=== PATIENT | female | born 1975 | race Two or more races ===

== ENCOUNTER 2023-12-04 19:33 | Emergency (ER) | payer BC, OTHER ==
[~2023-12-04] VITALS: Ht 152.4 cm; Wt 71.0 kg
[2023-12-04 21:20] LABS: Basophils # (auto) 0.2 10 ^3/uL (0-0.2); Basophils % (auto) 2.9 % (0.0-2.0); Eosinophils # (auto) 0.6 10 ^3/uL (0-0.8); Hemoglobin 12.7 g/dL (12.2-16.2); Lymphocytes # (auto) 2.6 10 ^3/uL (0.4-5.4); Mean Corpuscular Hemoglobin 30.9 pg (28.0-32.0); Mean Corpuscular Hgb Conc. 34.2 g/dL (32.0-36.0); Mean Corpuscular Volume 90.3 fL (80.0-100.0); Monocytes # (auto) 0.5 10 ^3/uL (0-1.3); Monocytes % (auto) 7.7 % (0.0-12.0); Neutrophils # (auto) 2.3 10 ^3/uL (1.6-8.6); Neutrophils % (auto) 37.4 % (37.0-80.0); Nucleated Red Blood Cells % 0.1 %; Red Cell Distribution Width 12.5 % (11.8-14.3); White Blood Cell 6.2 10^3/uL (4.4-10.8)
[2023-12-04 21:34] LABS: Chloride 108 mmol/L (98-107); Potassium 3.9 mmol/L (3.5-5.1); Sodium 138 mmol/L (136-145)
[2023-12-04 21:35] LABS: Anion Gap 1 (5-15); Carbon Dioxide 29 mmol/L (20-30)
[2023-12-04 21:36] LABS: Calcium 9.7 mg/dL (8.5-10.1)
[2023-12-04 21:40] LABS: BUN/Creatinine Ratio 17.6 (10.0-20.0); Blood Urea Nitrogen 13 mg/dL (9-23); Glucose 91 mg/dL (74-106)
[2023-12-04] MEDS: hydrALAZINE HCL 20 MG/ML VL IV ONE (21:48)
[2023-12-04] MEDS: hydrALAZINE HCL 10 MG TAB PO ONE (21:51)
[2023-12-04] MEDS ORDERED: VALA500T33 PO (22:54)
[2023-12-04] MEDS ORDERED: PRED20TA2 PO (22:54)
[2023-12-04] MEDS ORDERED: AUG875T PO (22:56)
[2023-12-04 23:00] VITALS: BP 130/54; PULSE 61; RESP 12; TEMP 98.2; O2SAT 98
== END 2023-12-04 23:16 | disposition home or self-care (01) ==
LOC: ER 19:33
DX: G51.0 Bell's palsy (principal); J32.9 Chronic sinusitis, unspecified; M54.2 Cervicalgia; J45.909 Unspecified asthma, uncomplicated
CPT/HCPCS: 36415; 70450; 80048; 83880; 84484; 85025; 93005